=== PATIENT | female | born 1990 | race Caucasian/White ===

== ENCOUNTER 2017-12-29 02:25 | Inpatient (IN) | payer OTHER ==
[2017-12-29] MEDS ORDERED: BUTORPHANOL TARTRATE 1 MG/ML VIAL IVPB ONE (04:15)
[2017-12-29] MEDS ORDERED: PROMETHAZINE HCL 25 MG/1 ML VIAL IVPB ONE (04:15)
[2017-12-29] MEDS: ELECTROLYTE-148 SOLN 1,000 ML IV SCH ×2 (04:20→07:30)
[2017-12-29] MEDS ORDERED: PROMETHAZINE HCL 25 MG/1 ML VIAL ONE (04:32)
[2017-12-29] MEDS ORDERED: BUTORPHANOL TARTRATE 1 MG/ML VIAL ONE (04:32)
[2017-12-29 04:52] LABS: BASO % 0.3 % (0-2.0); EOS % 1.2 % (0-4.5); HEMATOCRIT 37.1 % (32.4-45.2); HEMOGLOBIN 12.7 GM/dL (10.7-15.3); LYMPH % 17.3 % (8-40); MCH 27.6 pg (25.7-33.7); MCHC 34.2 g/dl (32.0-36.0); MEAN CELL VOLUME 80.8 fl (80-96); MEAN PLT VOLUME 8.6 fl (7.5-11.1); MONO % 5.1 % (3.8-10.2); NEUT % 76.1 % (42.8-82.8); PLATELET COUNT 214 K/MM3 (134-434); RBC 4.59 M/mm3 (3.60-5.2); RDW 13.6 % (11.6-15.6); WHITE BLOOD COUNT 10.5 K/mm3 (4.0-10.0)
[2017-12-29 04:53] VITALS: BMI 28.3
[2017-12-29 05:06] LABS: INR 0.91 (0.82-1.09); PROTHROMBIN TIME (PATIENT) 10.3 SEC (9.98-11.88)
[2017-12-29 05:09] LABS: ACTIVATED PTT 27.5 SECONDS (26.9-34.4)
[2017-12-29 05:14] LABS: ANION GAP 12 (8-16); BLOOD UREA NITROGEN 11 mg/dL (7-18); CALCIUM 8.2 mg/dL (8.5-10.1); CHLORIDE 104 mmol/L (98-107); CO2 24 mmol/L (21-32); CREATININE 0.5 mg/dL (0.55-1.02); GLUCOSE,RANDOM 111 mg/dL (74-106); POTASSIUM 3.4 mmol/L (3.5-5.1); SODIUM 140 mmol/L (136-145)
[2017-12-29] MEDS ORDERED: FENTANYL/BUPIVACAINE/NS/PF - PCEA - 50 ML DISP.SYRIN EP ONE (06:36)
[2017-12-29] MEDS ORDERED: NALOXONE HCL 0.4 MG/ML VIAL IVPUSH PRN (07:31)
[2017-12-29] MEDS ORDERED: FENTANYL/BUPIVACAINE/NS/PF - PCEA - 50 ML DISP.SYRIN EP SCH ×2 (07:45→08:32)
[2017-12-29] MEDS ORDERED: LIDOCAINE HCL 1% PRESERVATIVE FREE - 30ML VIAL ONE (10:26)
--- NOTE | 2017-12-29 10:26 | HP ---
Past Medical History - Admission History of Present Illness: 27 yo @ 39 2/7 wks by first trimester ultrasound, EDC 01/03/2018 uncomplicated Patient reports mild contractions all day yesterday and noticed spontaneous leakage of fluid 0200 and the contractions increased in intensity and frequency. She reports movement denies vaginal bleeding. She was examined , found to be spontaneously ruptured and 3 cm. History Source: Patient Limitations to Obtaining History: No Limitations - Past Medical History Cardiovascular: No: HTN Pulmonary: No: Asthma Gastrointestinal: No: GERD ...: 2 ...Para: 1 ...Term: 1 ...: 0 ...Spon : 0 ...Induced : 0 ...Multiple Gestation: 0 ...LMP: 03/29/17 ... Weeks Gestation by Dates: 39.2 ...EDC by Dates: 01/03/18 Heme/Onc: No: Anemia - Past Surgical History Past Surgical History: Yes: None Hx Myomectomy: No Hx Transabdominal Cerclage: No - Smoking History Smoking history: Never smoked Have you smoked in the past 12 months: No Aproximately how many cigarettes per day: 0 - Alcohol/Substance Use Hx Alcohol Use: No History of Substance Use: reports: None - Social History History of Recent Travel: No Home Medications - Allergies Allergies/Adverse Reactions: Allergies Allergy/AdvReac Type Severity Reaction Status Date / Time No Known Allergies Allergy Verified 12/29/17 03:05 - Home Medications Home Medications: Ambulatory Orders Pnv No.25/Iron Fumarate/FA/Dha [-1 Capsule] 1 each PO PRN 06/27/12 Family Disease History - Family Disease History Family History: Denies Review of Systems - Review of Systems Constitutional: reports: No Symptoms Neck: reports: No Symptoms Cardiovascular: reports: No Symptoms Respiratory: reports: No Symptoms Gastrointestinal: reports: No Symptoms Genitourinary: reports: No Symptoms Musculoskeletal: reports: No Symptoms Integumentary: reports: No Symptoms Hematology/Lymphatic: reports: No Symptoms Psychiatric: reports: No Symptoms Physical Exam - Maternity Vital Signs: Vital Signs Temperature 99.3 F 12/29/17 09:58 Pulse Rate 95 H 12/29/17 10:00 Respiratory Rate 18 12/29/17 10:00 Blood Pressure 118/74 12/29/17 10:00 O2 Sat by Pulse Oximetry (%) 98 12/29/17 10:00 Constitutional: Yes: Well Nourished, No Distress, Calm HENT: Yes: Atraumatic, Normocephalic Cardiovascular: Yes: Regular Rate and Rhythm Lungs: Clear to auscultation - Abdominal Exam/OB Fundal Height: 40 Number of Fetuses: Single Presentation: Vertex Contractions: No Regularity: Regular Intensity: Unaware Category: I Accelerations: Non-Uniform Decelerations: None - Vaginal Exam/OB Vaginal Bleediing: No Speculum Exam: No - Physical Exam Psychiatric: Yes: Alert, Oriented - Labs Lab Results: CBC, BMP 12/29/17 04:40 12/29/17 04:40 Hemorrhage Risk Assessment - Risk Factors Medium Risk Factors: Yes: None High Risk Factors: Yes: None Risk Score: 1 Risk Level: Medium Risk Assessment/Plan 27 yo in active labor 1. Admit to L&D 2. Routine labs collected and sent 3. GBS negative 4. Category I FHT 5. Will proceed with expectant management, anticipate vaginal delivery
[2017-12-29] MEDS: OXYTOCIN 20 UNITS in 0.9% NS 20 UNIT/1,000 ML INFUS.BAG IV SCH ×2 (11:10→12:50)
[2017-12-29] MEDS ORDERED: oxyCODONE HCL 5 MG TABLET PO PRN (11:24)
[2017-12-29] MEDS ORDERED: WITCH HAZEL 50% (TUCKS) 40 PAD/JAR PAD TP PRN (11:24)
[2017-12-29] MEDS ORDERED: BENZOCAINE 20% 57 GM BOTTLE TP PRN (11:24)
[2017-12-29] MEDS ORDERED: METHYLERGONOVINE MALEATE 0.2 MG/1 ML AMP IM PRN (11:24)
[2017-12-29] MEDS ORDERED: BISACODYL 10 MG SUPP.RECT RC PRN (11:24)
[2017-12-29] MEDS ORDERED: BENZOCAINE 28 GM HEMORRHOIDAL OINTMENT TP PRN (11:24)
--- NOTE | 2017-12-29 11:24 | PN ---
Delivery - Delivery Vaginal Delivery: No Problems Episiotomy/Laceration: Periurethral Extnsion/lac (right), 1st degree EBL (cc): 500 Delivery, Single - Stages of Labor Date 1st Stage Initiatied: 12/29/17 Time 1st Stage Initiated: 02:00 Date 2nd Stage Initiated: 12/29/17 Time 2nd Stage Initiated: 10:45 Date of Delivery: 12/29/17 Time of Delivery: 11:00 Date Placenta Delivered: 12/29/17 Time Placenta Delivered: 11:05 Placenta: Yes: Spontaneous - Condition of Infant Gender: Female Position: Left, OA Total Hours ROM (Hrs/Mins): 9 hours 5 minutes - 1 Minute Total Score: 9 5 Minutes Total Score: 9 - Feeding Plan Initial Plan: Exclusive throughout hospitalization Remarks - Remarks Remarks: Patient progressed to fully dilated and at 1100 via delivered a viable female infant in LITA position, APGARs 9,9. Weight and length unknown at this time. Head delivered spontaneously followed by shoulders and body without difficulty. Right compound hand noted upon delivery of the shoulders. with spontaneous cry and placed on mother's abdomen. Nose and mouth was bulb suctioned. Cord was clamped and cut. Perineum and vagina examined, a right periurethral laceration was noted and repaired in the usual fashion. Rectal exam revealed no sutures in rectum. Placenta was delivered spontaneously and intact. Mild uterine atony noted. 20 units of pitocin in 1 L IVF was given. Atony resolved. All counts correct x 2. Mother and infant stable in LDR. EBL 500cc.
[2017-12-29] MEDS ORDERED: OXYTOCIN 20 UNITS in 0.9% NS 20 UNIT/1,000 ML INFUS.BAG IV ONE (12:40)
[2017-12-29] MEDS: ACETAMINOPHEN 325 MG TABLET (FP) PO PRN (21:36)
[2017-12-29] MEDS: IBUPROFEN 600 MG TABLET (FP) PO PRN (21:37)
[2017-12-30] MEDS: IBUPROFEN 600 MG TABLET (FP) PO PRN ×2 (02:42→20:54)
[2017-12-30] MEDS: ACETAMINOPHEN 325 MG TABLET (FP) PO PRN ×2 (02:42→20:53)
[2017-12-30 08:34] LABS: BASO % 0.2 % (0-2.0); EOS % 1.5 % (0-4.5); HEMATOCRIT 30.2 % (32.4-45.2); HEMOGLOBIN 10.1 GM/dL (10.7-15.3); LYMPH % 21.4 % (8-40); MCH 27.6 pg (25.7-33.7); MCHC 33.6 g/dl (32.0-36.0); MEAN CELL VOLUME 82.3 fl (80-96); MEAN PLT VOLUME 8.5 fl (7.5-11.1); MONO % 6.1 % (3.8-10.2); NEUT % 70.8 % (42.8-82.8); PLATELET COUNT 203 K/MM3 (134-434); RBC 3.67 M/mm3 (3.60-5.2); RDW 13.8 % (11.6-15.6); WHITE BLOOD COUNT 13.1 K/mm3 (4.0-10.0)
[2017-12-30] MEDS ORDERED: DIPHTH,PERTUSS(ACELL),TET 0.5 ML DISP.SYRIN IM ONE (11:00)
--- NOTE | 2017-12-30 20:41 | PN ---
Post Progress Note - Subjective Subjective: Patient without acute complaints. Reports tolerating oral intake without nausea or vomiting. Ambulating without dizziness. Denies fevers or chills. Pain well controlled with oral pain medication. without difficulty. Passing flatus. No BM yet. Post Day: 1 Type of Delivery: Vital Signs: Vital Signs Temperature 98.1 F 12/30/17 09:57 Pulse Rate 76 12/30/17 09:57 Respiratory Rate 18 12/30/17 09:57 Blood Pressure 112/63 12/30/17 09:57 O2 Sat by Pulse Oximetry (%) 99 12/29/17 11:30 Breast Exam: Yes: Soft Uterus: Yes: Fundus Firm, Fundus below umbilicus Abdomen/GI: Yes: Abdomen soft, Passing flatus, Tolerating PO. No: Abdominal Distention, Tender Lochia: Yes: Serosa Lochia, amount: Small Extremities: Yes: Calves non-tender. No: Edema Activity: Ambulating - Labs Labs: CBC WBC 13.1 K/mm3 (4.0-10.0) H 12/30/17 07:45 RBC 3.67 M/mm3 (3.60-5.2) D 12/30/17 07:45 Hgb 10.1 GM/dL (10.7-15.3) L D 12/30/17 07:45 Hct 30.2 % (32.4-45.2) L D 12/30/17 07:45 MCV 82.3 fl (80-96) 12/30/17 07:45 MCH 27.6 pg (25.7-33.7) 12/30/17 07:45 MCHC 33.6 g/dl (32.0-36.0) 12/30/17 07:45 RDW 13.8 % (11.6-15.6) 12/30/17 07:45 Plt Count 203 K/MM3 (134-434) 12/30/17 07:45 MPV 8.5 fl (7.5-11.1) 12/30/17 07:45 Neutrophils % 70.8 % (42.8-82.8) 12/30/17 07:45 Lymphocytes % 21.4 % (8-40) D 12/30/17 07:45 Monocytes % 6.1 % (3.8-10.2) 12/30/17 07:45 Eosinophils % 1.5 % (0-4.5) 12/30/17 07:45 Basophils % 0.2 % (0-2.0) 12/30/17 07:45 Assessment/Plan 27 yo PPD#1 s/p , afebrile, vital signs stable, doing well 1. Continue routine care. 2. Follow up AM CBC 3. Rh negative status, will screen rh negative; no rhogam indicated 4. Encourage ambulation 5. Continue oral pain medication 6. Anticipate discharge home day #2
[2017-12-30 20:53] VITALS: TEMP 98.4
[2017-12-30] MEDS ORDERED: SENNOSIDES/DOCUSATE COMBO (SENNA PLUS) TABLET (UD) PO PRN (22:00)
[2017-12-31 08:13] VITALS: BP 113/61; PULSE 91
--- NOTE | 2017-12-31 08:34 | PN ---
Post Progress Note - Subjective Subjective: Patient without acute complaints. Reports tolerating oral intake without nausea or vomiting. Ambulating without dizziness. Denies fevers or chills. Pain well controlled with oral pain medication. without difficulty. Passing flatus. Post Day: 2 Type of Delivery: Vital Signs: Vital Signs Temperature 98.4 F 12/31/17 08:09 Pulse Rate 91 H 12/31/17 08:09 Respiratory Rate 20 12/31/17 08:09 Blood Pressure 113/61 12/31/17 08:09 O2 Sat by Pulse Oximetry (%) 99 12/29/17 11:30 Breast Exam: Yes: Soft Uterus: Yes: Fundus Firm, Fundus below umbilicus Abdomen/GI: Yes: Abdomen soft, Passing flatus, Tolerating PO. No: Abdominal Distention, Tender Lochia: Yes: Serosa Lochia, amount: Small Extremities: Yes: Calves non-tender. No: Edema Activity: Ambulating - Labs Labs: CBC WBC 13.1 K/mm3 (4.0-10.0) H 12/30/17 07:45 RBC 3.67 M/mm3 (3.60-5.2) D 12/30/17 07:45 Hgb 10.1 GM/dL (10.7-15.3) L D 12/30/17 07:45 Hct 30.2 % (32.4-45.2) L D 12/30/17 07:45 MCV 82.3 fl (80-96) 12/30/17 07:45 MCH 27.6 pg (25.7-33.7) 12/30/17 07:45 MCHC 33.6 g/dl (32.0-36.0) 12/30/17 07:45 RDW 13.8 % (11.6-15.6) 12/30/17 07:45 Plt Count 203 K/MM3 (134-434) 12/30/17 07:45 MPV 8.5 fl (7.5-11.1) 12/30/17 07:45 Neutrophils % 70.8 % (42.8-82.8) 12/30/17 07:45 Lymphocytes % 21.4 % (8-40) D 12/30/17 07:45 Monocytes % 6.1 % (3.8-10.2) 12/30/17 07:45 Eosinophils % 1.5 % (0-4.5) 12/30/17 07:45 Basophils % 0.2 % (0-2.0) 12/30/17 07:45 Assessment/Plan 27 yo PPD#2 s/p , afebrile, vital signs stable, stable for discharge home today 1. Patient stable for discharge home today. 2. Patient encouraged to contact MD for: - Severe pain not controlled by oral pain medication - Fevers or chills - Nausea or vomiting, intolerance of oral intake 3. Patient to follow up in office in 4-6 weeks for visit
--- NOTE | 2017-12-31 08:36 | DS ---
Physical Exam-FITNESS FLOOR ATTENDANT Vital Signs: Vital Signs Temperature 98.4 F 12/31/17 08:09 Pulse Rate 91 H 12/31/17 08:09 Respiratory Rate 20 12/31/17 08:09 Blood Pressure 113/61 12/31/17 08:09 O2 Sat by Pulse Oximetry (%) 99 12/29/17 11:30 Labs: CBC, BMP 12/30/17 07:45 12/29/17 04:40 Delivery - Delivery Vaginal Delivery: No Problems Type of Anesthesia: Local, Epidural Episiotomy/Laceration: Periurethral Extnsion/lac, 1st degree EBL (cc): 500 Delivery, Single - Stages of Labor Date 1st Stage Initiatied: 12/29/17 Time 1st Stage Initiated: 02:00 Date 2nd Stage Initiated: 12/29/17 Time 2nd Stage Initiated: 10:45 Date of Delivery: 12/29/17 Time of Delivery: 11:00 Time Placenta Delivered: 11:05 Placenta: Yes: Spontaneous - 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 She progressed without intervention and delivered a viable female infant via . PPD # 1 patient ambulated, voiding, passing gas, tolerating oral intake and with adequate pain control. She fulfilled all criteria for discharge PPD #2. - Instructions - Home Medications Comprehensive Discharge Medication List: Ambulatory Orders Pnv No.25/Iron Fumarate/FA/Dha [-1 Capsule] 1 each PO PRN 06/27/12
== END 2017-12-31 12:15 | disposition home or self-care (01) | DRG 775 ==
LOC: JDEL 02:25 → JLDR 04:15 → J3W 13:15
PROVIDERS: ADMIT Obstetrics & Gynecology; ATTEND Obstetrics & Gynecology
PROC: 0HQ9XZZ Repair Perineum Skin, External Approach (ICD-10-PCS; principal; 2017-12-29)
PROC: 10E0XZZ Delivery of Products of Conception, External Approach (ICD-10-PCS; 2017-12-29)
PROC: 0W8NXZZ Division of Female Perineum, External Approach (ICD-10-PCS; 2017-12-29)
DX: O70.0 First degree perineal laceration during delivery (principal); O71.5 Other obstetric injury to pelvic organs; Z3A.39 39 weeks gestation of pregnancy; Z37.0 Single live birth
CPT/HCPCS: 36415; 59409; 80048; 85025; 85610; 85730; 86593; 86850; 86900; 86901; 90715